=== PATIENT | male | born 1970 | race Caucasian/White ===

== ENCOUNTER 2021-10-03 13:17 | Emergency (ER) | payer BC, SELFPAY ==
[2021-10-03 13:19] VITALS: BP 107/71; PULSE 119; RESP 18; TEMP 36.2; O2SAT 97; BMI 30.5
[2021-10-03 14:46] LABS: Bedside Glucose 493 mg/dL (70-110)
--- NOTE | 2021-10-03 15:07 | EX.ED.DYSGE1 ---
HPI History of Present Illness Chief Complaint: Hyperglycemia Informant: patient Narrative Narrative: Patient went today to have a steroid injection in his back which she gets every 3 months.Patient sent down to Dr. Sage's office secondary to high blood sugar. With a checked his blood sugar before the procedure they noted to be elevated at 520. oral antiglycemics. Patient is a known diabetic and takes both insulin and He does not check his blood sugars regularly. [facility] Medical History Carotid dissection, bilateral Chronic back pain Diabetes High cholesterol Hypertension Allergy/AdvReac Type Severity Reaction Status Date / Time No Known Allergies Allergy Verified 10/03/21 13:21 Social History Smoking Status: Never smoker ROS ROS ED Constitutional Constitutional ED: Denies chills or fever(s) Eyes Eyes: Denies change in vision ENT ENT ED: Denies sore throat Cardiovascular Cardiovascular: Denies chest pain Respiratory/Chest Respiratory/Chest: Denies cough or dyspnea Gastrointestinal Gastrointestinal: Denies abdominal pain, diarrhea, nausea or vomiting Genitourinary Genitourinary ED: Denies dysuria Musculoskeletal Musculoskeletal: Denies back pain Integumentary Denies rash Neurologic Neurologic: Denies headache(s) or weakness Allergic/Immunologic Allergic/Immunologic ED: Denies urticaria EXAM Physical Exam Const Vital Signs: 10/03/21 13:19 Temperature 97.1 F L Temperature Source Temporal Pulse Rate 119 H Respiratory Rate 18 Blood Pressure 107/71 Blood Pressure Mean 83 Pulse Ox 97 Oxygen Delivery Method Room Air Positive well nourished and well developed General Appearance ED: well developed HEENT Reports dry mucous membranes Mouth ED: Yes dry mucous membranes Mouth: dry mucous membranes Eyes PERRL and EOMs intact bilaterally Neck supple Chest Wall inspection of chest normal and palpation of chest normal Resp normal respiratory effort and clear to auscultation bilaterally Cardio regular rate and regular rhythm GI non-tender Auscultation: hypoactive bowel sounds Palpation: soft Extremity normal to inspection Neuro oriented x3 Sensorium / Orientation: alert Psych mental status grossly normal Skin no rashes or lesions noted MDM MDM MDM Narrative Medical decision making narrative: Lab work obtained and patient given 1 L of IV fluid. Lab Data Attestation: I reviewed the patient's lab results. Labs: Laboratory Results - last 24 hr 10/03/21 10/03/21 10/03/21 13:29 13:38 13:38 WBC 7.7 RBC 5.13 Hgb 15.5 Hct 45.9 MCV 89.5 MCH 30.2 MCHC 33.8 RDW Std Deviation 39.3 RDW Coeff of Rafal 11.9 Plt Count 287 MPV 10.5 Immature Gran % (Auto) 0.500 Neut % (Auto) 69.6 Lymph % (Auto) 17.7 L [place] % (Auto) 10.0 Eos % (Auto) 1.7 Baso % (Auto) 0.5 Absolute Neuts (auto) 5.3 Absolute Lymphs (auto) 1.36 Nucleated RBC % 0 Sodium 132 L Potassium 4.4 Chloride 101 Carbon Dioxide 24.0 Anion Gap 7 BUN 10 Creatinine 1.14 Estim Creat Clear Calc 86.03 Est GFR (MDRD) Af Amer 88 Est GFR (MDRD) Non-Af 72 BUN/Creatinine Ratio 8.8 L Glucose 491 H* Hemoglobin A1c Calcium 8.6 POC Glucose 493 H* 10/03/21 10/03/21 13:38 16:50 WBC RBC Hgb Hct MCV MCH MCHC RDW Std Deviation RDW Coeff of Rafal Plt Count MPV Immature Gran % (Auto) Neut % (Auto) Lymph % (Auto) [place] % (Auto) Eos % (Auto) Baso % (Auto) Absolute Neuts (auto) Absolute Lymphs (auto) Nucleated RBC % Sodium Potassium Chloride Carbon Dioxide Anion Gap BUN Creatinine Estim Creat Clear Calc Est GFR (MDRD) Af Amer Est GFR (MDRD) Non-Af BUN/Creatinine Ratio Glucose 214 H Hemoglobin A1c 9.5 H Calcium POC Glucose Treatment and Re-Evaluation Comments:: Lab work reviewed. Blood sugar on arrival was 493 and confirmed at 491 in the lab work. Hemoglobin A1c is elevated at 9.5. After 1 L fluid repeat glucose is 214. Patient has had some trouble getting into see his PCP recently. I will give him information for Dr. Jackson so that he can have close diabetes follow-up here locally. Return instructions are given. Discharge Plan Triage Chief Complaint: Hyperglycemia ED Provider: Hazel Mcnulty Dx/Rx/DC Orders Clinical Impression: Hyperglycemia Instructions: ED Diabetic Hyperglycemia Primary Care Provider: Montana Kuo Referrals: Montana Kuo DO [Primary Care Provider] - Shahzad Jackson MD [STAFF PHYSICIAN] - As soon as possible Disposition Disposition: Home, Self Care
[2021-10-03] MEDS: 0.9% Normal Saline 1,000 ML 1000 ML IV (15:15)
[2021-10-03 15:27] LABS: Absolute Lymphocyte Count 1.36 X10^3/uL (0.83-4.51); Absolute Neutrophil Count 5.3 X10^3/uL (2.0-7.7); Basophil# 0.04 X10^3/uL; Basophil% 0.5 % (0-1); Eosinophil# 0.13 X10^3/uL; Eosinophils% 1.7 % (0-5); Hematocrit 45.9 % (40-54); Hemoglobin 15.5 g/dL (13.0-16.5); Lymphocyte # 1.36 X10^3/ul (0.83-4.51); Lymphocyte % 17.7 % (19-41); Mean Corp Hgb Conc 33.8 g/dL (32-36); Mean Corpuscular Hgb 30.2 pg (27.0-32.0); Mean Corpuscular Volume 89.5 fL (80-94); Mean Platelet Vol. 10.5 fl (6.2-12.0); Monocyte# 0.77 X10^3/uL; NRBC Flagged by Analyzer 0 % (0-5); Neutrophil # 5.33 X10^3/uL (2.7-7.7); Neutrophil % 69.6 % (47-70); Platelet Count 287 K/mm3 (150-450); RBC Distribution Width CV 11.9 % (11.6-14.6); RBC Distribution Width SD 39.3 fl (35.1-43.9); Red Blood Count 5.13 M/mm3 (4.6-6.2); White Blood Count 7.7 K/mm3 (4.4-11.0)
[2021-10-03 16:21] LABS: Hemoglobin A1c 9.5 % (3.8-5.6)
[2021-10-03 16:22] LABS: Anion Gap 7 (5-15); BUN 10 mg/dL (7-18); BUN/Creat Ratio 8.8 RATIO (10-20); Calcium,Total 8.6 mg/dL (8.5-10.1); Chloride 101 mmol/L (98-107); Creatinine, Serum 1.14 mg/dL (0.70-1.30); EST Glomerular Filtration Rate 72 mL/min (>60); Est Glom Filt Rate - Afr Amer 88 mL/min (>60); Estimated Creatinine Clearance 86.03 ml/min; Glucose 491 mg/dL (74-106); Potassium 4.4 mmol/L (3.5-5.1); Sodium Level 132 mmol/L (136-145)
[2021-10-03 17:56] LABS: Glucose 214 mg/dL (74-106)
[2021-10-03 18:18] VITALS: PULSE 76; O2SAT 97
[2021-10-04 07:31] LABS: Bedside Glucose 184 mg/dL (70-110)
[2021-10-04 07:31] LABS: Bedside Glucose 231 mg/dL (70-110)
== END 2021-10-03 23:59 | disposition home or self-care (01) ==
PROVIDERS: Emergency Provider Emergency Medicine; PCP Family Medicine; Visit Provider Emergency Medicine
DX: E11.65 Type 2 diabetes mellitus with hyperglycemia (principal); Z79.4 Long term (current) use of insulin; I10 Essential (primary) hypertension; E78.00 Pure hypercholesterolemia, unspecified; M54.9 Dorsalgia, unspecified; G89.29 Other chronic pain
CPT/HCPCS: 36415; 80048; 82947; 82962; 83036; 85025; 96360; 99283; J7030; A4216